=== PATIENT | male | born 1960 | race Caucasian/White ===

== ENCOUNTER → 2021-08-25 | Outpatient (CLI) | payer MEDICARE ==
--- NOTE | 2021-08-25 11:10 | KCIC ---
EXAM: Pelvis and bilateral hips, 3 views. HISTORY: Pain. COMPARISON: None. FINDINGS: A frontal view of the pelvis and frog-leg views of both hips are obtained. There is left hi p joint space narrowing. There is marginal bilateral femoral head and acetabular spurring. There is n o fracture, dislocation or subluxation. There are suspected left hip joint loose bodies. There is ins trumented fusion and there are laminectomy changes at the lumbosacral junction. There is degenerative endplate remodeling with disc space narrowing and facet arthropathy at the lower lumbar levels. IMPRESSION: 1. Moderate left greater than right hip osteoarthritis. 2. Postoperative and degenerative change involving the lumbosacral junction. Electronically signed by: Karlie Acevedo MD (08/25/2021 11:08 AM) [id number]
== END ==
LOC: KCIC 10:37
PROVIDERS: ATTEND Physical Medicine & Rehabilitation
DX: M16.0 Bilateral primary osteoarthritis of hip (principal); M47.816 Spondylosis without myelopathy or radiculopathy, lumbar region; M48.061 Spinal stenosis, lumbar region without neurogenic claudication; M47.896 Other spondylosis, lumbar region; Z98.890 Other specified postprocedural states
CPT/HCPCS: 73521